=== PATIENT | female | born 1965 | race American Indian/Alaskan Native ===

== ENCOUNTER 2019-01-19 19:39 | Emergency (ER) | payer OTHER ==
--- NOTE | 2019-01-19 20:34 | Emergency Department Report ---
Blank Doc - Documentation Documentation: left lower ext pain and swelling x 1 day and now radiates to mid chest
[2019-01-19 20:35] VITALS: BP 150/97
[2019-01-19 21:15] LABS: Hematocrit 38.8 % (30.3-42.9); Hemoglobin 13.1 gm/dl (10.1-14.3); Mean Corpuscular HGB Conc 34 % (30-34); Mean Corpuscular Volume 90 fl (79-97); Red Blood Count 4.34 M/mm3 (3.65-5.03); Red Cell Distribution Width 15.2 % (13.2-15.2)
[2019-01-19 21:30] LABS: INR 0.91 (0.87-1.13)
[2019-01-19] MEDS ORDERED: MORPHINE IV ONE ×2 (21:32→23:46)
[2019-01-19 21:33] LABS: Platelet Count 242 K/mm3 (140-440)
[2019-01-19 21:38] LABS: Alanine Aminotransferase 18 units/L (7-56); Albumin 4.3 g/dL (3.9-5); BUN/Creatinine Ratio 17; Blood Urea Nitrogen 15 mg/dL (7-17); Calcium 9.1 mg/dL (8.4-10.2); Hemolysis Index 46
[2019-01-19] MEDS ORDERED: XARELTO PO ONE ×2 (21:48→23:29)
[2019-01-19 22:20] LABS: Eosinophils % (Manual) 0 % (0.0-4.3); Total Cells Counted 100
[2019-01-19 22:21] LABS: Platelet Estimate Cons
--- NOTE | 2019-01-19 23:09 | Cat Scan Report ---
PROCEDURE: CT ANGIO CHEST TECHNIQUE: HISTORY: chest pain COMPARISONS: PROCEDURE: CT ANGIO CHEST TECHNIQUE: Computerized tomographic angiography of the chest was performed after the IV injection of iodinated nonionic contrast including image processing. The image data was postprocessed using 2-di mensional multiplanar reformatted (MPR) and 3-dimensional (MIP and/or volume rendered) techniques. Au tomated exposure control, adjustment of mA and/or kV according to patient size, or iterative reconstr uction dose optimization techniques were utilized. CT DOSE LENGTH PRODUCT: mGycm HISTORY: chest pain COMPARISONS: None . FINDINGS: Bilateral pulmonary arteries and their branches demonstrate normal opacification without filling defe cts suspicious for pulmonary embolism. Small amount of air is noted in the anterior portion of the ma in pulmonary artery which is most likely secondary to inadvertent IV entry during contrast administra tion. Aorta is of normal caliber. There is no lymphadenopathy. Hilar structures are within normal calvin its. Cardiac size is within normal limits. There is moderate degree of elevation of left hemidiaphrag m. Bilateral lungs are clear without any Infiltrates or mass lesions. Pleural spaces are clear. Verte bral height is normal. Visualized upper abdominal structures are within normal limits. IMPRESSION: No evidence of pulmonary embolism No acute pulmonary process This document is electronically signed by Mark Anthony Toney MD., January 19 2019 11:06:56 PM ET
--- NOTE | 2019-01-19 23:43 | Emergency Department Report ---
ED Extremity Problem HPI - General Chief complaint: Chest Pain Stated complaint: CHEST/LEG PAIN Time Seen by Provider: 01/19/19 20:33 Source: patient Mode of arrival: Ambulatory Limitations: No Limitations - History of Present Illness Initial comments: 53-year-old female with left leg pain since last night. Patient states pain radiates up into the chest from her leg. Patient denies trauma or injury. Pain is worse with ambulation. Denies swelling, fever. MD Complaint: extremity pain -: Last night Location: left, lower extremity Radiation: proximal Severity scale (0 -10): 8 Quality: sharp Consistency: intermittent Improves with: immobilization Worsens with: weight bearing, walking Associated Symptoms: chest pain - Related Data Previous Rx's Medication Instructions Recorded Last Taken Type diazePAM TAB [Valium] 2 mg PO QHS #7 tablet 07/18/15 Unknown Rx methOCARBAMOL [Robaxin TAB] 500 mg PO TID #21 tab 07/18/15 Unknown Rx Sulfamethoxazole/Trimethoprim 1 each PO BID 10 Days #14 tablet 01/19/19 Unknown Rx [Bactrim DS TAB] Allergies Allergy/AdvReac Type Severity Reaction Status Date / Time iodine Allergy Rash Verified 02/23/16 19:58 NSAIDS (Non-Steroidal Allergy Unknown Verified 07/18/15 09:04 Anti-Inflamma shellfish derived Allergy Rash Verified 02/23/16 19:58 ED Review of Systems ROS: Stated complaint: CHEST/LEG PAIN Other details as noted in HPI Comment: All other systems reviewed and negative Constitutional: denies: chills, fever Respiratory: cough Cardiovascular: chest pain Musculoskeletal: as per HPI ED Past Medical Hx - Past Medical History Previous Medical History?: Yes Hx Hypertension: Yes Hx Diabetes: Yes Additional medical history: Chronic back pain: According to the [place] prescription drug monitoring program, patient's physical on numerous pain medi cations from several different physicians. Some of note are [place] 10, carisoprodol, and diazepam. Noted physicians that have written these medications for her is Drs. Rayray Shipley, Geno Blanc, and Josesito. - Surgical History Past Surgical History?: Yes Additional Surgical History: shoulder sx, tubal ligation - Social History Smoking Status: Never Smoker Substance Use Type: None - Medications Home Medications: Home Medications Medication Instructions Recorded Confirmed Last Taken Type diazePAM TAB [Valium] 2 mg PO QHS #7 tablet 07/18/15 Unknown Rx methOCARBAMOL [Robaxin TAB] 500 mg PO TID #21 tab 07/18/15 Unknown Rx Sulfamethoxazole/Trimethoprim 1 each PO BID 10 Days #14 tablet 01/19/19 Unknown Rx [Bactrim DS TAB] ED Physical Exam - General Limitations: No Limitations General appearance: alert, in no apparent distress - Head Head exam: Present: atraumatic, normocephalic - Eye Eye exam: Present: normal appearance - ENT ENT exam: Present: mucous membranes moist - Neck Neck exam: Present: normal inspection - Respiratory Respiratory exam: Present: normal lung sounds bilaterally. Absent: respiratory distress - Cardiovascular Cardiovascular Exam: Present: regular rate, normal rhythm - GI/Abdominal GI/Abdominal exam: Present: soft. Absent: distended - Extremities Exam Extremities exam: Present: calf tenderness (left sided). Absent: pedal edema - Neurological Exam Neurological exam: Present: alert, oriented X3 - Psychiatric Psychiatric exam: Present: normal affect, normal mood - Skin Skin exam: Present: warm, dry, intact, normal color. Absent: rash ED Course Vital Signs 01/19/19 01/20/19 20:29 00:20 Temperature 98.4 F 98.7 F Pulse Rate 108 H 88 Respiratory 18 Rate Blood Pressure 150/97 O2 Sat by Pulse 98 Oximetry - Reevaluation(s) Reevaluation #1: 01/19/19 23:36 CTA negative. Pt still instructed to return for US of left leg. WBCs elevated, however, pt reports that she has been on steroids for the past week for her bronchitis. This may be the cause of her elevated WBCs. Pt states WBC usually 12. Will still cover for possible cellulitis w/ abx. Xarelto given here in ED. ED Medical Decision Making - Lab Data Result diagrams: 01/19/19 20:44 01/19/19 20:44 - EKG Data -: EKG Interpreted by Me EKG shows normal: sinus rhythm, axis, intervals, QRS complexes, ST-T waves Rate: tachycardia (rate 106) - EKG Data Interpretation: no acute changes - Radiology Data Radiology results: report reviewed, image reviewed - Differential Diagnosis DVT, PE, ACS, cellulitis, arthralgia Critical care attestation.: If time is entered above; I have spent that time in minutes in the direct care of this critically ill patient, excluding procedure time. ED Disposition Clinical Impression: Pain of left lower extremity Disposition: DC- TO HOME OR SELFCARE Is pt being admited?: No Condition: Stable Instructions: Cellulitis (ED), Deep Venous Thrombosis (ED), Arthralgia (ED) Prescriptions: Sulfamethoxazole/Trimethoprim [Bactrim DS TAB] 1 each PO BID 10 Days #14 tablet Referrals: SANTI YANEZ MD [Primary Care Provider] - 3-5 Days PARK ARIAS MD [Staff Physician] - 3-5 Days [facility] [Provider Group] - 3-5 Days Time of Disposition: 23:44
== END 2019-01-20 00:20 | disposition home or self-care (01) ==
LOC: ED 19:39
DX: M79.605 Pain in left leg (principal); I10 Essential (primary) hypertension; E11.9 Type 2 diabetes mellitus without complications; M54.9 Dorsalgia, unspecified; G89.29 Other chronic pain; Z98.51 Tubal ligation status; Z91.041 Radiographic dye allergy status; Z91.013 Allergy to seafood; Z88.6 Allergy status to analgesic agent
CPT/HCPCS: 36415; 71275; 80053; 85007; 85025; 85379; 85610; 93005; 93010; 96374; 96376; 99284; J2270; Q9967

== ENCOUNTER 2019-01-20 15:02 | Outpatient (CLI) | payer OTHER ==
--- NOTE | 2019-01-20 22:05 | Vascular Lab Report ---
PROCEDURE: VL VENOUS DUPLEX LE LT TECHNIQUE: Routine Doppler compression imaging was obtained of the deep venous system of left lower extremity. Augmentation maneuvers and waveforms recorded. HISTORY: LEFT LEG PAIN THAT RADIATES TO CHEST COMPARISONS: None FINDINGS: All of the veins compressibility. Waveforms appear normal. IMPRESSION: Normal exam. No evidence of DVT in the left lower extremity. This document is electronically signed by Blayne Christianson MD., January 20 2019 10:04:04 PM ET
== END 2019-01-20 15:03 | disposition home or self-care (01) ==
LOC: VAS 15:02
PROVIDERS: ATTEND Emergency Medicine
DX: M79.605 Pain in left leg (principal); I10 Essential (primary) hypertension

== ENCOUNTER 2019-11-22 21:26 | Emergency (ER) | payer OTHER ==
--- NOTE | 2019-11-22 22:08 | Emergency Department Report ---
Blank Doc - Documentation Documentation: 54-year-old female that presents with abdominal pain with n/v. This initial assessment/diagnostic orders/clinical plan/treatment(s) is/are subject to change based on patient's health status, clinical progression and re- assessment by fellow clinical providers in the ED. Further treatment and workup at subsequent clinical providers discretion. Patient/guardians urged not to elope from the ED as their condition may be serious if not clinically assessed and managed. Initial orders include: 1- Patient sent to [facility] for further evaluation and treatment 2- labs 3- UA
[2019-11-22 23:27] LABS: Hematocrit 40.1 % (30.3-42.9); Hemoglobin 13.3 gm/dl (10.1-14.3); Mean Corpuscular HGB Conc 33 % (30-34); Mean Corpuscular Volume 87 fl (79-97); Platelet Count 288 K/mm3 (140-440); Red Blood Count 4.62 M/mm3 (3.65-5.03); Red Cell Distribution Width 16.5 % (13.2-15.2)
[2019-11-22 23:32] LABS: Bilirubin,Urine NEG (Negative); Blood,Urine NEG (Negative); Color,Urine Straw (Yellow); Mucus,Urine FEW /HPF; Protein,Urine <15 mg/dL mg/dL (Negative); Urobilinogen,Urine < 2.0 mg/dL (<2.0); WBC,Urine < 1.0 /HPF (0.0-6.0)
[2019-11-22 23:52] LABS: Alanine Aminotransferase 14 units/L (7-56); Albumin 4.4 g/dL (3.9-5); BUN/Creatinine Ratio 7; Blood Urea Nitrogen 4 mg/dL (7-17); Calcium 9.2 mg/dL (8.4-10.2); Hemolysis Index 10
[2019-11-23] MEDS ORDERED: ONDANSETRON 4 MG/2 ML INJ IV ONE (01:52)
[2019-11-23] MEDS ORDERED: MORPHINE 4 MG/1 ML INJ IV ONE ×2 (01:52→03:17)
[2019-11-23 02:06] LABS: Basophils % (Manual) 0 % (0.0-1.8); Total Cells Counted 100
[2019-11-23 02:07] LABS: Stomatocytes Rare; Target Cells Few
[2019-11-23 02:08] LABS: Platelet Estimate Consistent w Auto
--- NOTE | 2019-11-23 02:30 | Emergency Department Report ---
HPI - General Chief Complaint: Abdominal Pain Time Seen by Provider: 11/22/19 22:08 - HPI HPI: 54-year-old -Romanian female presents to the emergency department with complaint of right upper quadrant and left lower quadrant abdominal pain. The right upper quadrant abdominal pain has been going on since Friday and the left lower quadrant since yesterday and everything intensified today. She has some nausea without vomiting. Patient has a past medical history of hypertension, diabetes and chronic back pain. Patient says that she took some of her home pain medication without any relief. Her primary care physician is a Dr. Meier. ED Past Medical Hx - Past Medical History Hx Hypertension: Yes Hx Diabetes: Yes Additional medical history: Chronic back pain: According to the [place] prescription drug monitoring program, patient's physical on numerous pain medications from several different physicians. Some of note are [facility] 10, carisoprodol, and diazepam. Noted physicians that have written these medications for her is Drs. Rayray Shipley, Geno Blanc, and Josesito. - Surgical History Additional Surgical History: shoulder sx, tubal ligation - Social History Smoking Status: Never Smoker Substance Use Type: None - Medications Home Medications: Home Medications Medication Instructions Recorded Confirmed Last Taken Type diazePAM TAB [Valium] 2 mg PO QHS #7 tablet 07/18/15 Unknown Rx methOCARBAMOL [Robaxin TAB] 500 mg PO TID #21 tab 07/18/15 Unknown Rx Sulfamethoxazole/Trimethoprim 1 each PO BID 10 Days #14 tablet 01/19/19 Unknown Rx [Bactrim DS TAB] metroNIDAZOLE [Flagyl] 500 mg PO Q12HR #14 tab 11/23/19 Unknown Rx ED Review of Systems ROS: Stated complaint: STOMACH PAIN LEFT BOTTOM Other details as noted in HPI Comment: All other systems reviewed and negative Constitutional: denies: chills, fever Eyes: denies: eye pain, vision change ENT: denies: ear pain, throat pain Respiratory: denies: cough, shortness of breath Cardiovascular: denies: chest pain, palpitations Gastrointestinal: abdominal pain, nausea. denies: vomiting Genitourinary: denies: dysuria, discharge Musculoskeletal: denies: joint swelling, arthralgia Skin: denies: rash, lesions Neurological: denies: headache, weakness Physical Exam - Physical Exam Vital Signs: Vital Signs 11/22/19 11/23/19 11/23/19 22:09 01:38 02:07 Temperature 99.2 F 98.2 F Pulse Rate 102 H 93 H Respiratory 18 16 15 Rate Blood Pressure 189/111 Blood Pressure 152/97 [Left] O2 Sat by Pulse 100 100 Oximetry Physical Exam: GENERAL: The patient is well-developed well-nourished. HEENT: Normocephalic. Atraumatic. Patient has moist mucous membranes. EYES: Extraocular motions are intact. NECK: Supple. Trachea is midline CHEST/LUNGS: Clear to auscultation. There is no respiratory distress noted. HEART/CARDIOVASCULAR: Regular. There is no tachycardia. ABDOMEN: Abdomen is soft. There is some right upper quadrant and left lower quadrant abdominal tenderness to palpation. No guarding. Patient has normal b owel sounds. There is no abdominal distention. SKIN: Skin is warm and dry. NEURO: The patient is awake, alert, and oriented. The patient is cooperative. The patient has no focal neurologic deficits. Normal speech. MUSCULOSKELETAL: There is no tenderness or deformity. There is no evidence of acute injury. ED Course Vital Signs 11/22/19 11/23/19 11/23/19 22:09 01:38 02:07 Temperature 99.2 F 98.2 F Pulse Rate 102 H 93 H Respiratory 18 16 15 Rate Blood Pressure 189/111 Blood Pressure 152/97 [Left] O2 Sat by Pulse 100 100 Oximetry ED Medical Decision Making - Lab Data Result diagrams: 11/22/19 22:43 11/22/19 22:43 - Radiology Data Radiology results: report reviewed CT OF THE ABDOMEN AND PELVIS WITH INTRAVENOUS CONTRAST INDICATION / CLINICAL INFORMATION: Right upper quadrant pain, left lower quadrant pain and nausea. TECHNIQUE: The patient received 100 cc Omnipaque [address] scans at this location are performed using CT dose reduction for ALARA by means of automated exposure control. COMPARISON: None available. FINDINGS: ABDOMEN: There are a couple of tiny low-density lesions in the superior spleen which are likely cysts. There is mild diffuse fatty infiltration of the liver without focal lesion. The gallbladder, bile ducts, pancreas, adrenal glands and right kidney are normal. There is a small nonobstructive calculus in the left mid kidney. There is a simple cyst in the lower pole of the left kidney. The bowel is normal. No adenopathy is seen. There is mild bibasilar subsegmental atelectasis. PELVIS: The distal ureters and urinary bladder are normal. The uterus is enlarged and contains multiple fibroids, the largest which measures approximately 5 cm. I see no evidence of adnexal mass or free fluid. There are scattered left colonic diverticula without evidence of diverticulitis. A normal appendix is present. There is a small periumbilical hernia containing a small bowel loop without complication. There is mild degenerative disc disease at L4-5. IMPRESSION: 1. Diverticulosis without CT evidence of acute diverticulitis. 2. Small periumbilical hernia containing a small bowel loop without complication. 3. Enlarged uterus containing multiple fibroids. 4. Small nonobstructive left renal calculus. - Medical Decision Making This patient presents with some right upper quadrant and left lower quadrant abdominal tenderness. On examination the patient has some reproducible tenderness to palpation but the abdomen is soft, nondistended and nontoxic in appearance. Patient's labs are mostly unremarkable. There is a mild leukocytosis of about 15,000. Normal LFTs, lipase, bilirubin. CT of the abdomen and pelvis with IV contrast was performed that shows diverticulosis without diverticulitis, small periumbilical hernia without signs of incarceration or strangulation, multiple fibroids. Patient was given a few doses of pain medication with some improvement. Her vital signs and stable throughout her ED course. She appears safe for discharge home at this time. She has been given a prescription for some Flagyl, given the leukocytosis, to make sure the diverticulosis does not become diverticulitis. She has been given referrals for general surgery to follow up regarding the periumbilical hernia, and gastroenterology to follow up regarding her abdominal pain and diverticulosis. She will return to the emergency Department with any worsening of her symptoms or any acute distress. - Differential Diagnosis diverticulitis, colitis, constipation, cholelithiasis, cholecystitis Critical Care Time: No Critical care attestation.: If time is entered above; I have spent that time in minutes in the direct care of this critically ill patient, excluding procedure time. ED Disposition Clinical Impression: Diverticulosis, Periumbilical hernia Hypertension Qualifiers: Hypertension type: essential hypertension Qualified Code(s): I10 - Essential (primary) hypertension Abdominal pain Qualifiers: Abdominal location: unspecified location Qualified Code(s): R10.9 - Unspecified abdominal pain Disposition: DC-01 TO HOME OR SELFCARE Is pt being admited?: No Condition: Stable Instructions: Diverticulosis (ED), Ventral Hernia (ED), Diverticulosis Diet (ED), Abdominal Pain (ED), Hypertension (ED) Additional Instructions: Please follow-up with your primary care physician in the next few days. Return to the emergency Department with any worsening of your symptoms or any acute distress. I am giving you a referral for a local general surgeon, Dr. Kent, to follow up regarding your hernia. I'm giving you a referral for [place] [facility] to follow up regarding the diverticulosis and your abdominal pains. You have been prescribed an antibiotic Flagyl/metronidazole, that has a very bad reaction if mixed with alcohol of any quantity. Prescriptions: metroNIDAZOLE [Flagyl] 500 mg PO Q12HR #14 tab Referrals: PRIMARY CARE, [Primary Care Provider] - 2-3 Days SVITLANA KENT MD [Staff Physician] - 2-3 Days [facility] [Provider Group] - 2-3 Days Time of Disposition: 03:50
--- NOTE | 2019-11-23 02:57 | Cat Scan Report ---
CT OF THE ABDOMEN AND PELVIS WITH INTRAVENOUS CONTRAST INDICATION / CLINICAL INFORMATION: Right upper quadrant pain, left lower quadrant pain and nausea. TECHNIQUE: The patient received 100 cc Omnipaque [address] scans at this location are performed using CT dose reduction for ALARA by means of automated exposure control. COMPARISON: None available. FINDINGS: ABDOMEN: There are a couple of tiny low-density lesions in the superior spleen which are likely cysts . There is mild diffuse fatty infiltration of the liver without focal lesion. The gallbladder, bile d ucts, pancreas, adrenal glands and right kidney are normal. There is a small nonobstructive calculus in the left mid kidney. There is a simple cyst in the lower pole of the left kidney. The bowel is nor mal. No adenopathy is seen. There is mild bibasilar subsegmental atelectasis. PELVIS: The distal ureters and urinary bladder are normal. The uterus is enlarged and contains multip le fibroids, the largest which measures approximately 5 cm. I see no evidence of adnexal mass or free fluid. There are scattered left colonic diverticula without evidence of diverticulitis. A normal kassie endix is present. There is a small periumbilical hernia containing a small bowel loop without complic ation. There is mild degenerative disc disease at L4-5. IMPRESSION: 1. Diverticulosis without CT evidence of acute diverticulitis. 2. Small periumbilical hernia containing a small bowel loop without complication. 3. Enlarged uterus containing multiple fibroids. 4. Small nonobstructive left renal calculus. Signer Name: Blayne Champion MD Signed: 11/23/2019 2:53 AM Workstation Name: [id number]
[2019-11-23] MEDS ORDERED: SODIUM CHLORIDE 0.9% 500 ML 500 ML IV ONE (03:17)
[2019-11-23 04:38] VITALS: BP 122/77
== END 2019-11-23 04:07 | disposition home or self-care (01) ==
LOC: ED 21:26
DX: K57.90 Diverticulosis of intestine, part unspecified, without perforation or abscess without bleeding (principal); K42.9 Umbilical hernia without obstruction or gangrene; I10 Essential (primary) hypertension; E11.9 Type 2 diabetes mellitus without complications; Z98.51 Tubal ligation status; Z79.899 Other long term (current) drug therapy; Z91.041 Radiographic dye allergy status; Z88.6 Allergy status to analgesic agent; Z91.013 Allergy to seafood
CPT/HCPCS: 36415; 74177; 80053; 81001; 83690; 85007; 85025; 96374; 96375; 96376; 99284; J2270; J2405; J7040; Q9967